=== PATIENT | female | born 1985 | race Two or more races ===

== ENCOUNTER 2019-01-31 04:57 | Inpatient (IN) | payer MEDICAID, OTHER ==
[~2019-01-31 04:57] MED LIST: Lactated Ringers 1,000 ML IV SCH; Nalbuphine 20 MG/ML 1 ML Syringe IVPUSH PRN; Oxytocin/Lactated Ringers 10 UNIT/1,000 ML BAG IV SCH; Sodium Chloride 0.9% 10 ML Syringe FLUSH PRN
[2019-01-31] MEDS ORDERED: ceFAZolin 1 GM in Premix Bag 1 BAG IV SCH (06:00)
[2019-01-31] MEDS ORDERED: Bupivacaine 0.5% 30 ML SDV ONE ×2 (06:45→12:05)
[2019-01-31] MEDS ORDERED: Citric Acid/Sodium Citrate Solution 30 ML Cup PO ONE (06:49)
[2019-01-31] MEDS ORDERED: Metoclopramide 10 MG/2 ML SDV IVPUSH ONE (06:49)
[2019-01-31] MEDS ORDERED: Metoclopramide 10 MG/2 ML SDV ONE (06:58)
[2019-01-31] MEDS ORDERED: Citric Acid/Sodium Citrate Solution 30 ML Cup ONE (06:59)
[2019-01-31] MEDS ORDERED: Ondansetron 4 MG/2 ML SDV ONE (07:11)
[2019-01-31] MEDS ORDERED: Lactated Ringers 1,000 ML ONE ×5 (07:11→12:38)
[2019-01-31] MEDS ORDERED: Morphine PF 1 MG/ML Amp ONE (07:11)
[2019-01-31] MEDS ORDERED: Oxytocin 10 Units/1 ML SDV ONE ×2 (07:11→09:12)
[2019-01-31] MEDS ORDERED: ceFAZolin 1 GM Vial ONE ×3 (07:11→13:39)
[2019-01-31] MEDS ORDERED: Ketorolac 30 MG/ML SDV ONE (07:11)
--- NOTE | 2019-01-31 07:33 | PCM.PREANE ---
Preanesthetic Assessment - Procedure Proposed Procedure: repeat csection - Anesthesia/Transfusion/Family Hx Anesthesia History: Prior Anesthesia Reaction Other Type of Anesthesia Reaction Comment: facial numbness Transfusion History: No Prior Transfusion(s) - Review of Systems General: No Symptoms Pulmonary: No Symptoms Cardiovascular: No Symptoms Gastrointestinal: No Symptoms Neurological: No Symptoms Other: Reports: None - Physical Assessment NPO Status Date: 01/30/19 NPO Status Time: 23:40 Pulse: 75 O2 Sat by Pulse Oximetry: 98 Respiratory Rate: 20 Blood Pressure: 104/62 Temperature: 98.8 F Vital Signs: Last Vital Signs Temp 98.8 F 01/31/19 05:24 Pulse 75 01/31/19 05:24 Resp 20 01/31/19 05:24 BP 104/62 01/31/19 05:24 Pulse Ox 98 01/31/19 05:24 Height: 5 ft 3 in Weight: 108.862 kg ASA Class: 2 Mental Status: Alert & Oriented x3 Airway Class: Mallampati = 1 Dentition: Reports: Normal Dentition Thyro-Mental Finger Breadths: 3 Mouth Opening Finger Breadths: 3 ROM/Head Extension: Full Lungs: Clear to Auscultation, Normal Respiratory Effort Cardiovascular: Regular Rate, Regular Rhythm - Lab Values: Laboratory Last Values WBC 10.81 K/mm3 (3.98-10.04) H 01/31/19 05:50 RBC 3.89 M/mm3 (3.98-5.22) L 01/31/19 05:50 Hgb 9.1 gm/L (11.2-15.7) L D 01/31/19 05:50 Hct 30.0 % (34.1-44.9) L 01/31/19 05:50 MCV 77.1 fl (79.4-94.8) L 01/31/19 05:50 MCH 23.4 pg (25.6-32.2) L 01/31/19 05:50 MCHC 30.3 g/dl (32.2-35.5) L 01/31/19 05:50 RDW Std Deviation 46.7 fL (36.4-46.3) H 01/31/19 05:50 Plt Count 297 K/mm3 (182-369) 01/31/19 05:50 MPV 10.0 fl (9.4-12.3) 01/31/19 05:50 Neut % (Auto) 69.2 % (34.0-71.1) 01/31/19 05:50 Lymph % (Auto) 20.7 % (19.3-51.7) 01/31/19 05:50 [place] % (Auto) 7.0 % (4.7-12.5) 01/31/19 05:50 Eos % (Auto) 2.5 (0.7-5.8) 01/31/19 05:50 Baso % (Auto) 0.2 % (0.1-1.2) 01/31/19 05:50 Neut # (Auto) 7.48 K/mm3 (1.56-6.13) H 01/31/19 05:50 Lymph # (Auto) 2.24 K/mm3 (1.18-3.74) 01/31/19 05:50 [place] # (Auto) 0.76 K/mm3 (0.24-0.36) H 01/31/19 05:50 Eos # (Auto) 0.27 K/mm3 (0.04-0.36) 01/31/19 05:50 Baso # (Auto) 0.02 K/mm3 (0.01-0.08) 01/31/19 05:50 Urine Color Yellow (Yellow) 01/31/19 05:15 Urine Appearance Clear (Clear) 01/31/19 05:15 Urine pH 7.0 (5.0-8.0) 01/31/19 05:15 Ur Specific Whitman 1.015 (1.005-1.030) 01/31/19 05:15 Urine Protein Negative (Negative) 01/31/19 05:15 Urine Glucose (UA) Negative (Negative) 01/31/19 05:15 Urine Ketones Negative (Negative) 01/31/19 05:15 Urine Occult Blood Trace-intact (Negative) H 01/31/19 05:15 Urine Nitrite Negative (Negative) 01/31/19 05:15 Urine Bilirubin Negative (Negative) 01/31/19 05:15 Urine Urobilinogen 0.2 (0.2-1.0) 01/31/19 05:15 Ur Leukocyte Esterase Negative (Negative) 01/31/19 05:15 Urine RBC 0-5 /hpf (0-5) 01/31/19 05:15 Urine WBC 0-5 /hpf (0-5) 01/31/19 05:15 Ur Epithelial Cells 0-5 /hpf (0-5) 01/31/19 05:15 Urine Bacteria Rare /hpf (FEW) 01/31/19 05:15 Urine Mucus Not seen /hpf (FEW) 01/31/19 05:15 Urine Opiates Screen Negative (IWCUKX=091) 01/31/19 05:15 Ur Buprenorphine Scrn Negative (CUTOFF=10) 01/31/19 05:15 Ur Oxycodone Screen Negative (KRS8YW=447) 01/31/19 05:15 Urine Methadone Screen Negative (TVVSPP=565) 01/31/19 05:15 Ur Propoxyphene Screen Negative (ZVLJGV=183) 01/31/19 05:15 Ur Barbiturates Screen Negative (DBCHTE=751) 01/31/19 05:15 Ur Tricyclics Screen Negative (UTXPLW=796) 01/31/19 05:15 Ur Phencyclidine Scrn Negative (CUTOFF=25) 01/31/19 05:15 Ur Amphetamine Screen Negative (OAVIXK=161) 01/31/19 05:15 U Methamphetamines Scrn Negative (QDJNLZ=250) 01/31/19 05:15 U Benzodiazepines Scrn Negative (FEWTVG=168) 01/31/19 05:15 U Cocaine Metab Screen Negative (BGROMK=832) 01/31/19 05:15 U Marijuana (THC) Screen Presumptive positive (CUTOFF=50) H 01/31/19 05:15 - Allergies Allergies/Adverse Reactions: Allergies Allergy/AdvReac Type Severity Reaction Status Date / Time acetaminophen [From Percocet] Allergy Intermediate Respiratory Verified 17:05 Distress oxycodone HCl [From Percocet] Allergy Intermediate Respiratory Verified 06:09 Distress - Blood Blood Available: No - Acknowledgements Anesthesia Type Planned: Spinal Pt an Appropriate Candidate for the Planned Anesthesia: Yes Alternatives and Risks of Anesthesia Discussed w Pt/Guardian: Yes Pt/Guardian Understands and Agrees with Anesthesia Plan: Yes PreAnesthesia Questionnaire Cardiovascular History: Reports: None Respiratory History: Reports: None Gastrointestinal History: Reports: None 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: Spontaneous : 8 (39 weeks) Para: 7 Other OB/BYN History: SAB x3 Psychiatric History: Reports: Depression (in past) Endocrine/Metabolic History: Reports: Obesity/BMI 30+ Hematologic History: Reports: Anemia - Past Surgical History Female Surgical History: Reports: Section Other Female Surgeries/Procedures: x7 Musculoskeletal Surgical History: Reports: Other (See Below) (hand and right leg and ankle) - SUBSTANCE USE Smoking Status *Q: Former Smoker (quit 2011) Tobacco Use Within Last Twelve Months: No Second Hand Smoke Exposure: No Days Per Week of Alcohol Use: 0 Recreational Drug Use History: No - HOME MEDS Home Medications: Home Meds PNV95/Ferrous Fumarate/FA [ Multivitamins] 1 tab PO DAILY 12/11/14 [ History] Acetaminophen/HYDROcodone [[place] 325-5 MG] 1 tab PO Q6H PRN #30 tablet 12/13/14 [Rx] Ibuprofen [Motrin] 600 mg PO Q6H PRN #30 tablet 12/13/14 [Rx] Simethicone 80 mg PO Q6HR PRN 30 Days tab.chew 12/13/14 [Rx] - CURRENT (IN HOUSE) MEDS Current Meds: Current Medications Cefazolin Sodium/Dextrose 1 gm (/ Premix) 50 mls @ 100 mls/hr IV Q8HR MARS Lactated Ringer's (Ringers, Lactated) 1,000 mls @ 100 mls/hr IV ASDIRECTED MARS Last Admin: 01/31/19 07:02 Dose: 100 mls/hr Oxytocin/Lactated Ringer's (Pitocin In Lr 10 Units/1,000 Ml) 10 unit in 1,000 mls @ 100 mls/hr IV .CONTINUOUS MARS Nalbuphine HCl (Nubain) 10 mg IVPUSH Q2H PRN PRN Reason: pain Sodium Chloride (Saline Flush) 10 ml FLUSH ASDIRECTED PRN PRN Reason: Keep Vein Open Discontinued Medications Bupivacaine HCl (Marcaine 0.5%) Confirm Administered Dose 30 ml .ROUTE .STK-MED ONE Stop: 01/31/19 06:46 Cefazolin Sodium (Ancef) Confirm Administered Dose 2 gm .ROUTE .STK-MED ONE Stop: 01/31/19 07:12 Citric Acid/Sodium Citrate (Bicitra Solution) 30 ml PO ONETIME ONE Stop: 01/31/19 06:50 Last Admin: 01/31/19 07:02 Dose: 30 ml Citric Acid/Sodium Citrate (Bicitra Solution) Confirm Administered Dose 30 ml .ROUTE .STK-MED ONE Stop: 01/31/19 07:00 Lactated Ringer's (Ringers, Lactated) Confirm Administered Dose 2,000 mls @ as directed .ROUTE .STK-MED ONE Stop: 01/31/19 07:12 Ketorolac Tromethamine (Toradol) Confirm Administered Dose 30 mg .ROUTE .STK- MED ONE Stop: 01/31/19 07:12 Metoclopramide HCl (Reglan) 10 mg IVPUSH ONETIME ONE Stop: 01/31/19 06:50 Last Admin: 01/31/19 07:02 Dose: 10 mg Metoclopramide HCl (Reglan) Confirm Administered Dose 10 mg .ROUTE .STK-MED ONE Stop: 01/31/19 06:59 Morphine Sulfate (Duramorph Pf) Confirm Administered Dose 1 mg .ROUTE .STK-MED ONE Stop: 01/31/19 07:12 Ondansetron HCl (Zofran) Confirm Administered Dose 4 mg .ROUTE .STK-MED ONE Stop: 01/31/19 07:12 Oxytocin (Pitocin) Confirm Administered Dose 10 unit .ROUTE .STK-MED ONE Stop: 01/31/19 07:12
[2019-01-31] MEDS ORDERED: ePHEDrine 50 MG/ML SDV ONE ×2 (07:55→12:07)
[2019-01-31] MEDS ORDERED: Ondansetron 4 MG/2 ML SDV IVPUSH PRN (08:06)
[2019-01-31] MEDS ORDERED: diphenhydrAMINE 50 MG/ML SDV IVPUSH PRN (08:06)
[2019-01-31] MEDS ORDERED: fentaNYL 100 MCG/2 ML SDV IVPUSH PRN (08:06)
[2019-01-31] MEDS ORDERED: Methylergonovine 0.2 MG/1 ML Amp ONE ×2 (08:51→14:14)
[2019-01-31] MEDS ORDERED: Carboprost Tromethamine 250 MCG/1 ML Amp ONE (09:00)
--- NOTE | 2019-01-31 10:17 | PCM.POSTAN ---
POST ANESTHESIA ASSESSMENT - MENTAL STATUS Mental Status: Alert, Oriented - VITAL SIGNS Pulse Rate: 90 SaO2: 98 Resp Rate: 15 Blood Pressure: 79/56 Temperature: 97 F - RESPIRATORY Respiratory Status: Respiratory Rate WNL, Airway Patent, O2 Saturation Stable, Supplemental Oxygen - CARDIOVASCULAR CV Status: Pulse Rate WNL, Low Blood Pressure (waiting on ffp and unit 4 packed rbc) - GASTROINTESTINAL GI Status: No Symptoms - PAIN Pain Score: 0 - POST OP HYDRATION Hydration Status: Adequate & Stable
--- NOTE | 2019-01-31 10:21 | PCM.OPNOTE ---
- General Post-Op/Procedure Note Date of Surgery/Procedure: 01/31/19 Operative Procedure(s): repeat section Findings: Viable female, weight 8#5oz, APGARS 9/9 at 0814. Significant scar tissue Good hemostasis postop. Then immediate hemorrhage with steady bleeding and multiple medications required, finally hemostatic with bakri. Pre Op Diagnosis: prior , 39w Post-Op Diagnosis: Same Anesthesia Technique: Spinal Primary Surgeon: Serenity Lott Anesthesia Provider: [employer] Chief Creative Officer: Chuyita Bae Fluid Replacement, Intraop: 5,912 Output, Urine Amount: 25 EBL in mLs: 4,900 (3000 after incision closed) Complications: None Condition: Good Free Text/Narrative:: Intake & Output 01/30/19 01/31/19 01/31/19 22:59 06:59 14:59 Intake Total 0 Output Total 25 Balance -25 The patient was taken to the operating room where spinal anesthesia was dosed to surgical levels without difficulty. The patient was prepped and draped in the usual sterile fashion in the dorsal supine position with a leftward tilt. A Pfannenstiel skin incision was made to the prior with the scalpel and carried through to the underlying layer of fascia. Significant scar tissue was taken down to reach fascia. The fascia was incised in the midline and extended laterally using Garcia scissors. Lorna clamps were used to elevate the superior aspect of the fascial incision, which was elevated, and the underlying rectus muscles were dissected off bluntly and using Garcia scissors. Attention was then turned to the inferior aspect of the fascial incision, which in similar fashion was grasped with Lorna clamps, elevated, and the underlying rectus muscles were dissected off bluntly and using the garcia. Peritoneum was entered simultaneously. This incision was extended superiorly and inferiorly with good visualization of the bladder. The bladder blade was inserted. The vesicouterine peritoneum was identified and entered sharply using Metzenbaum scissors. This incision was extended laterally and the bladder flap was created digitally. The bladder blade was reinserted. The lower uterine segment was incised in a transverse fashion using the scalpel and with digital traction. Placenta was immediately noted. Through this the head was felt, the infant was subsequently delivered by flexing the head to the incision. Body and shoulders followed without difficulty. The cord was clamped and cut. The was subsequently handed to the awaiting airbrush painter whose presence had been requested.. The placenta was delivered spontaneously intact with a three-vessel cord noted. The uterus was exteriorized and cleared of all clots and debris. The uterine incision was repaired in 1 layers using 0 monocryl. 1 unit pRBC started at this time as patient's starting hemoglobin had been 9.1 and significant blood loss prior to delivery of infant and placenta. Additional figure of eight sutures utilized. Hemostasis was visualized. Hemostasis was visualized bilaterally. The uterus was returned to the abdomen. The uterine incision was reexamined and it was noted to be hemostatic. The pelvis was copiously irrigated. The fascia was closed with 1 PDS suture, and the skin was closed with 3-0 monocryl. Sponge, lap, and instrument counts were correct x2. Procedure end at 0848 No significant bleeding noted upon initial expression of uterus. At 0851 upon preparing to move patient from OR bed significant bleeding noted, methergine and TXA given. Uterus explored using sterile technique. Additional blood ordered. Hemabate given at 9am and Bakri balloon placed. Bleeding did eventually slow with bakri. Total of 3 u pRBC given. FFP and platelets pending. The patient was stable at the completion of the procedure and was subsequently transferred to the recovery room in stable condition.
[2019-01-31] MEDS ORDERED: Sodium Chloride 0.9% 1,000 ML ONE ×7 (11:06→15:47)
[2019-01-31] MEDS ORDERED: Etomidate 2 MG/ML 20 ML SDV IVPUSH ONE (12:03)
[2019-01-31] MEDS ORDERED: Rocuronium 50 MG/5 ML Vial ONE ×2 (12:03→13:23)
[2019-01-31] MEDS ORDERED: HYDROmorphone 0.5 MG/0.5 ML Syringe ONE (12:05)
[2019-01-31] MEDS ORDERED: fentaNYL 250 MCG/5 ML SDV ONE (12:05)
[2019-01-31] MEDS ORDERED: Succinylcholine/Normal Saline 100 MG/5 ML Syringe ONE (12:22)
[2019-01-31] MEDS ORDERED: Calcium Chloride 10% 1 GM/10 ML Syringe ONE ×2 (12:26→13:20)
[2019-01-31] MEDS ORDERED: Phenylephrine/Normal Saline 100 MCG/ML 10 ML Syringe ONE ×2 (12:33→12:58)
[2019-01-31] MEDS ORDERED: Sodium Bicarbonate 8.4% 50 MEQ/50 ML Syringe ONE (14:25)
[2019-01-31] MEDS ORDERED: Midazolam 1 MG/ML 2 ML SDV ONE (14:59)
[2019-01-31] MEDS ORDERED: Sodium Bicarbonate 8.4% 50 MEQ/50 ML SDV ONE (15:09)
[2019-01-31] MEDS ORDERED: fentaNYL 100 MCG/2 ML SDV ONE (15:16)
--- NOTE | 2019-01-31 16:10 | PCM.POSTAN ---
POST ANESTHESIA ASSESSMENT - MENTAL STATUS Mental Status: Oriented, Other (Intubated) - VITAL SIGNS Pulse Rate: 159 (came down to 98 after fentanyl) SaO2: 100 Resp Rate: 8 Blood Pressure: 135/68 Temperature: 98.2 F - RESPIRATORY Respiratory Status: Respiratory Rate WNL, Airway Patent, O2 Saturation Stable, Supplemental Oxygen - CARDIOVASCULAR CV Status: Elevated Pulse Rate - GASTROINTESTINAL GI Status: No Symptoms - POST OP HYDRATION Hydration Status: Adequate & Stable - OBSERVATIONS Free Text/Narrative:: To ER Trauma 2- Patient on Ventilator- Report given to ER nurses and physician and flight crew. IVs patent. Dr Gaitan going to place central line. Vitals stabalized.
[2019-01-31 16:11] VITALS: BP 135/68
--- NOTE | 2019-01-31 17:12 | PCM.SN ---
- Free Text/Narrative Note: Late entry. Called to PACU at 11:30am with increased bleeding again. Patient with 300 mL blood in bed. Vaginal exam reveals bakri in vagina. Significant clot behind bakri after removal. Clot expressed and uterus firm. Discussed with patient given increase in bleeding if not resolved would need to proceed with hysterectomy. Discussed given amount of bleeding already there is increased risk with surgery and risk of need for further transfusion or even . Patient asked that I talk to her boyfriend. Discussed with him and discussed risk of surgery. Returned and repeat bimanual exam. Approximately 500 mL additional clot. Decision to proceed with hysterectomy. Patient consented and proceeded with surgery.
--- NOTE | 2019-01-31 17:32 | PCM.OPNOTE ---
- General Post-Op/Procedure Note Date of Surgery/Procedure: 01/31/19 Operative Procedure(s): Supracervical hysterectomy Findings: Right broad ligament uterine rupture, significantly dilated lower uterine segment. Significant uterine atony. Pre Op Diagnosis: severe hemorrhage Post-Op Diagnosis: Same Anesthesia Technique: Spinal Primary Surgeon: Serenity Lott Anesthesia Provider: Rohan Ross (see anesthesia record) Cloth Shrinking Supervisor: Chuyita Bae Cloth Shrinking Supervisor: Chris Palmer Reason Cloth Shrinking Supervisor Was Necessary: Massive bleeding, patient safety Fluid Replacement, Intraop: 13,500 (total since arrival) Output, Urine Amount: 25 EBL in mLs: 5,000 Complications: Massive hemorrhage Condition: Good Free Text/Narrative:: Intake & Output 01/31/19 01/31/19 01/31/19 06:59 14:59 22:59 Intake Total 9271 Output Total 877 Balance 8394 Patient taken to operating room. General anesthesia initiated. Exam revealed additional clot in the vagina. Patient prepped and draped in normal sterile fashion in dorsal supine position Adler catheter remained in place. A Pfannenstiel incision reopened. Fascial suture removed. David retractor placed. Significant blood noted in the abdominal cavity upon entry significantly dilated lower uterine segment noted. Left fallopian tube elevated , LigaSure utilized to travel under mesal salpinx on the left along to the cornu. Essure used to transect the round ligament between the ovary and uterus coming down along the uterus on the left. Additional bites taken on the left. The broad ligament was significantly edematous and dilated. Additional Zeppelin clamps utilized to travel downwards to the level of the uterine artery. After ensuring the bladder was down below this level this was clamped and suture ligated. Attention turned to the contralateral side tube elevated in same manner window created in the salpinx and LigaSure clamp utilized to separate the ovary on the uterus and travel down the uterus through the round ligament. One additional straight Zeppelin clamp utilized on this right to travel downward towards the broad ligament. At this point it became obvious that there was a defect in the broad ligament on this side consistent with uterine rupture along this side posteriorly and laterally. There was significant hemorrhage on this side back clamps were utilized to render hemostasis. Attention turned to the contralateral side with packing in place 1 additional Zeppelin clamps utilized to travel downwards to almost the level of the cervix. At this point Dr. Palmer was asked to join us as well for assistance with retraction and visualization and surgical management. After his additional inspection decision was made to clamp across above the cervix and amputate the fundus. There was minimal bleeding from the amputation site inspection was performed and while some cervix remained hemostasis along the pedicles was good at this point. One area of bleeding along the left uterine artery was clamped and suture ligated. The cervical/vaginal cuff was oversewn with running locked sutures in the somewhat 2 layer fashion from the area of rupture on the right across to midline to create a normal-appearing cuff which was then further oversewn with 0 Monocryl. There was an area of separation and bleeding that remained in the right broad ligament with careful inspection 1. Vigorous bleeding was noted and clamped with hemostat and suture ligated on this render this area hemostatic further areas of small amounts of oozing but no significant bleeding were noted. FloSeal was applied over an area of oozing on the left and in the area of the broad ligament where bleeding had been noted on the right. At this point we placed the patient in frog-leg position and evaluated the amount of vaginal bleeding there was significant blood that had accumulated throughout the surgical case but no further active bleeding noted. Pelvis reinspected and hemostasis noted. Some small amounts of oozing were noted FloSeal again reapplied. Significant time was required to obtain hemostasis. Significant hypotension throughout the course of the case please see anesthesia record for quantities of blood products given and further detail of acute care during anesthesia. Disposition intubated taken to trauma room 2 for stabilization and transferred to critical care facility for access to more blood products and intensive care
== END 2019-01-31 17:00 | DRG 786 ==
LOC: JD.OB 04:57
PROVIDERS: ADMIT Obstetrics & Gynecology; ATTEND Obstetrics & Gynecology
PROC: 0W3R7ZZ Control Bleeding in Genitourinary Tract, Via Natural or Artificial Opening (ICD-10-PCS; principal; 2019-01-31)
PROC: 10D00Z1 Extraction of Products of Conception, Low, Open Approach (ICD-10-PCS; principal; 2019-01-31)
PROC: 0UT90ZL Resection of Uterus, Supracervical, Open Approach (ICD-10-PCS; 2019-01-31)
PROC: 0W3J0ZZ Control Bleeding in Pelvic Cavity, Open Approach (ICD-10-PCS; 2019-01-31)
PROC: 30233N1 Transfusion of Nonautologous Red Blood Cells into Peripheral Vein, Percutaneous Approach (ICD-10-PCS; 2019-01-31)
PROC: 30233K1 Transfusion of Nonautologous Frozen Plasma into Peripheral Vein, Percutaneous Approach (ICD-10-PCS; 2019-01-31)
PROC: 30233M1 Transfusion of Nonautologous Plasma Cryoprecipitate into Peripheral Vein, Percutaneous Approach (ICD-10-PCS; 2019-01-31)
PROC: 30233R1 Transfusion of Nonautologous Platelets into Peripheral Vein, Percutaneous Approach (ICD-10-PCS; 2019-01-31)
DX: O34.219 Maternal care for unspecified type scar from previous cesarean delivery (principal); O71.1 Rupture of uterus during labor; O72.1 Other immediate postpartum hemorrhage; N85.8 Other specified noninflammatory disorders of uterus; Z3A.39 39 weeks gestation of pregnancy; Z37.0 Single live birth; O67.8 Other intrapartum hemorrhage; O99.214 Obesity complicating childbirth; O99.02 Anemia complicating childbirth; D64.9 Anemia, unspecified; Z88.8 Allergy status to other drugs, medicaments and biological substances; Z87.891 Personal history of nicotine dependence; Z88.5 Allergy status to narcotic agent; E66.01 Morbid (severe) obesity due to excess calories
CPT/HCPCS: 00840; 01961; 36415; 36430; 36600; 59025; 80053; 80306; 81001; 82803; 85007; 85025; 85027; 85384; 85610; 85730; 86592; 86850; 86900; 86901; 86922; A9270-GY; G0480; J0330; J0690; J1170; J1885; J2210; J2250; J2274; J2370; J2405; J2590; J2765; J3010; J3490; J7040; J7060; J7120; P9012; P9016; P9017; P9034

== ENCOUNTER 2019-01-31 15:15 | Emergency (ER) | payer MEDICAID ==
[2019-01-31] MEDS ORDERED: fentaNYL 100 MCG/2 ML SDV IVPUSH ONE ×3 (15:25→16:27)
--- NOTE | 2019-01-31 15:25 | EDM.PDOC ---
ED HPI GENERAL MEDICAL PROBLEM - General Chief Complaint: Trauma Stated Complaint: SURGICAL COMPLICATIONS Time Seen by Provider: 01/31/19 15:15 Source of Information: Reports: Provider, Other (nurse anaesthetist.) History Limitations: Reports: No Limitations, Other (Patient is paralyzed and on the portable ventilator.) - History of Present Illness INITIAL COMMENTS - FREE TEXT/NARRATIVE: 33-year-old female of [place] ancestry presents to the ED from the operating room. Patient is 8 para 8 and underwent a without any care other than seeing Dr. Sharif once, a week ago. She has had multiple C-sections. She was scheduled for routine and did deliver a live fetus. Complications occurred after this with an atonic uterus that continued to bleed and hemorrhage. Instrumentation was carried out to try and curtail the hemorrhage but failed. Patient was taken back to the operative room from the PACU due to continued hypotension. Multiple transfusion protocol was carried out and the patient thus far has had 12 units of packed RBCs and 3 units of fresh frozen plasma and 3 or 4 units of platelets that were brought by highway patrol from [place]. She was brought to the ED for further stabilization prior to transport to a higher level of care. She arrived warm, with Bear hugger in place. She was tachycardic upon arrival at 153's sinus rhythm. This was felt this was likely a pain response and she was given fentanyl 50 g IV which did bring her tachycardia under control. She did also require IV believe another dose of vecuronium to continue paralysis. Gas done just before arrival in the ED revealed a pH of 7.32 with a PCO2 of 43.3 and a PaO2 of 199. His sats are 99.9%. I believe ventilator is set at 10 of PEEP. Tidal volume of 650. FiO2 of 100%. Rate was 16. Onset: Today Onset Date: 01/31/19 Onset Time: 09:00 (I believe the patient was scheduled for 0 800 our operative time is unclear when she became unstable.) Duration: Hour(s): Location: Reports: Other (Hypotension due to hemorrhage requiring multiple transfusion protocol. Patient has had over 12 units of packed red cells given already as well as 4 units of platelets and 3 units of fresh frozen plasma.There is no further fresh frozen plasma available to her. Platelets were transported to our hospital from [place] by Highway Patrol. It's unclear how many packs of platelets she has had thus far.) Severity: Severe Improves with: Reports: None Context: Reports: Other (Postop complications with atonic uterus requiring balloon insufflation into the uterus tacked as a tamponading agent which failed. Patient apparently then ruptured the posterior aspect of her uterus and into the broad ligament causing massive hemorrhage.) - Related Data Allergies Allergy/AdvReac Type Severity Reaction Status Date / Time acetaminophen [From Percocet] Allergy Intermediate Respiratory Verified 17:05 Distress oxycodone HCl [From Percocet] Allergy Intermediate Respiratory Verified 06:09 Distress Home Meds: Home Meds PNV95/Ferrous Fumarate/FA [ Multivitamins] 1 tab PO DAILY 12/11/14 [ History] Acetaminophen/HYDROcodone [[place] 325-5 MG] 1 tab PO Q6H PRN #30 tablet 12/13/14 [Rx] Ibuprofen [Motrin] 600 mg PO Q6H PRN #30 tablet 12/13/14 [Rx] Simethicone 80 mg PO Q6HR PRN 30 Days tab.chew 12/13/14 [Rx] Past Medical History Cardiovascular History: Reports: None Respiratory History: Reports: None Gastrointestinal History: Reports: None 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 She was brought to the ED for further stabilization prior to transport to a larger hospital) ED EXAM, GENERAL - Physical Exam Exam: See Below Exam Limited By: Other (Patient is on a ventilator and current O2 sats are 99%.) General Appearance: Other (Patient is on a ventilator and is paralyzed with vecuronium. Her initial blood pressure was as low as 74 systolic and she came to the ED on dopamine 5mcg/kg min. Currently receiving crystalloids. Apparently has had 13-1/2 L of crystalloid) Respiratory/Chest: Lungs Clear, Other (Good air entry into both lung ramon on ventilator inspiration) Cardiovascular: Normal Peripheral Pulses, Regular Rate, Rhythm, No Edema, No Gallop, No Murmur, No Rub Peripheral Pulses: 1+: Posterior Tibial (L), Posterior Tibial (R), Dorsalis Pedis (L), Dorsalis Pedis (R), 2+: Femoral (L), Femoral (R) GI/Abdominal: Abnormal Bowel Sounds, Other (Less than bowel sounds. Bandage across a Pfannenstiel incision across her lower abdomen which is moderately obese.) ED CENTRAL LINE INSERTION - Central Line Insertion Central Line Indication: IV access, hemodynamic monitoring, medication administration Site: femoral (R) Prep: CDC/MBT Guidelines, Sterile Drapes, Betadine, Chlorhexidine Lumen: triple Gauge: 7Fr Ultrasound guided: No Guidewire and dilator removed intact: Yes Micropuncture kit used: No Complications: No Secured with suture: Yes Post placement confirmation: all ports aspirated, all ports flushed Dressing applied: by provider, op-site dressing Central line comment: Multiple multiple attempts to place a right subclavian line failed due to contact with bony structures I first rib and the undersurface of the clavicle. Procedure was aborted and instead use the right femoral vein for central line access. A chest x-ray was not obtained postprocedure due to time dependency. Course - Orders/Labs/Meds Orders: Active Orders 24 hr Category Date Time Status CBC WITH MANUAL DIFF [HEME] Stat Lab 01/31/19 15:56 Received Labs: Laboratory Tests 01/31/19 01/31/19 Range/Units 15:56 15:56 PT 11.1 (9.5-12.1) SECONDS INR 1.02 APTT 22 L (24-31) SECONDS Fibrinogen 172 L (187-446) mg/dL Meds: Medications Discontinued Medications Generic Name Dose Route Start Last Admin Trade Name Freq PRN Reason Stop Dose Admin Fentanyl Confirm 01/31/19 16:26 Sublimaze Administered 01/31/19 16:27 Dose 100 mcg .ROUTE .STK-MED ONE - Radiology Interpretation Free Text/Narrative:: 33-year-old female of [place] ancestry brought to the ED from the operating room where she had undergone a routine . She is 8 apparently. 8. There is some confusion as to whether or not she may have had a spontaneous miscarriage. At any rate she had a postoperative hemorrhage. She had an atonic uterus and therefore an intrauterine balloon was placed to provide tamponade. Patient was transferred to the PACU. Blood products were started and platelets were ordered from [place]. Patient became hemodynamically unstable in the PACU and was taken back to the operative room and the abdomen was reopened. Patient was found to be hemorrhaging into her intra-abdominal cavity. It appeared that she had bled around the intrauterine balloon and ruptured the posterior segment of her uterus and into the broad ligament. This caused massive intra-abdominal hemorrhage. Patient will thus required massive transfusion protocol. Patient received up to this point 13-1/2 L of crystalloid. 12 units of packed red blood cells and apparently is on the 13th unit. Platelets have been brought from [place] times to believe she has received 4 packs of platelets. She has received 3 units of fresh frozen plasma and in no further fresh frozen plasma is available for her. She arrives on a dopamine infusion at 5 mcg/kg/m with blood pressure at 74 systolic. She was tachycardic at 1 53/m felt to be primarily due to pain response and she was starting to awaken from paralytic agent. She was given phenyl 50 g IV and was re-paralyzed with vecuronium. This did bring her heart rate down into the 1 teens. Discussion held with architecture department chair Dr. Jane and SOAKING TANK WORKER physician at [facility] with myself and Dr. Sharif the SOAKING TANK WORKER who performed the . She made to transfer her directly to the intensive care unit. Central line will be started and levo fed will be used in place of dopamine to improve blood pressure. I was unable to start a subclavian line and the ventilator was in the way of potential IV J. Therefore right femoral vein was utilized transiently to fuse levo fed starting at 4 mg/min. Dopamine infusion was discontinued. Blood pressure at the time of discharge was 122/78. - Re-Assessments/Exams Free Text/Narrative Re-Assessment/Exam: 01/31/19 17:35 PT was 11.1. INR is 1.02. PTT is 22. Fibrinogen 172. Apparently a CBC with platelets count was not yet available because the blood clotted before the CBC be could be run in the lab.. Departure - Departure Time of Disposition: 17:10 Disposition: DC/Tfer to Acute Hospital 02 Condition: Critical Clinical Impression: Hypotension due to blood loss, Status post emergency hysterectomy Postoperative hemorrhage Qualifiers: Surgical complication system/body Area: genitourinary Procedure type: genitourinary Qualified Code(s): N99.820 - Postprocedural hemorrhage of a genitourinary system organ or structure following a genitourinary system procedure - Discharge Information *PRESCRIPTION DRUG MONITORING PROGRAM REVIEWED*: Not Applicable *COPY OF PRESCRIPTION DRUG MONITORING REPORT IN PATIENT ANNELISE: Not Applicable Referrals: PCP,None [Primary Care Provider] - Forms: ED Department Discharge Additional Instructions: Patient was transferred to [facility] in [facility] intensive care unit under the care of -architecture department chair. is had multiple transfusion protocol carried out with over 13 units of red blood cells given well in the operating room and postoperatively. At least 4 units of platelets and 3 units of fresh frozen plasma as well. Blood pressure stabilized with low-dose levo fed via central line at 4 mg/min. patient will remain paralyzed and on the vent during transport to that facility per helicopter - My Orders Last 24 Hours: My Active Orders 01/31/19 15:56 CBC WITH MANUAL DIFF [HEME] Stat - Assessment/Plan Last 24 Hours: My Active Orders 01/31/19 15:56 CBC WITH MANUAL DIFF [HEME] Stat
[2019-01-31] MEDS ORDERED: fentaNYL 100 MCG/2 ML SDV ONE (16:26)
== END 2019-01-31 17:10 ==
LOC: JD.ED 15:15
DX: N99.820 Postprocedural hemorrhage of a genitourinary system organ or structure following a genitourinary system procedure (principal); I95.89 Other hypotension; Z90.710 Acquired absence of both cervix and uterus
CPT/HCPCS: 36415; 36556; 85384; 85610; 85730; 96374; 96376; 99291; 99292; J3010